=== PATIENT | female | born 1970 | race Two or more races ===

== ENCOUNTER 2018-03-18 12:00 | Inpatient (IN) | payer OTHER ==
[~2018-03-18] VITALS: Ht 157.5 cm; Wt 63.5 kg
[2018-03-18] MEDS ORDERED: LEVO-T75 MCG PO (15:50)
[2018-03-18] MEDS ORDERED: GABAPENTIN600 MG PO (15:51)
[2018-03-18] MEDS ORDERED: JENTADUETO XR1 EACH PO (15:51)
[2018-03-18] MEDS ORDERED: FENOFIBRATE160 MG PO (15:51)
[2018-03-18] MEDS ORDERED: DICLOFENAC POTA50 MG PO (15:52)
[2018-03-18] MEDS ORDERED: ZOLOFT50 MG PO (15:52)
[2018-03-26] MEDS ORDERED: DOCUSATE SODIU100 MG PO (09:14)
[2018-03-26] MEDS ORDERED: GABAPENTIN800 MG PO (09:14)
[2018-03-26] MEDS ORDERED: AMOX-CLAV 875-1 EACH PO (09:15)
[2018-03-26] MEDS ORDERED: CLONAZEPAM1 MG PO (09:16)
[2018-03-26] MEDS ORDERED: PERCOCET 5-3251 EACH PO (09:16)
[2018-03-26] MEDS ORDERED: MEDROLPACK PO (09:52)
== END 2018-03-26 14:08 | disposition home or self-care (01) | DRG 455 ==
LOC: SURG 03-25 07:44 → O/R 03-25 07:44 → SURG 03-25 11:06 → RECOVERY 03-25 12:00 → SURG 03-26 14:08
PROVIDERS: Orthopaedic Surgery Orthopaedic Surgery of the Spine
PROC: 0SG30AJ Fusion of Lumbosacral Joint with Interbody Fusion Device, Posterior Approach, Anterior Column, Open Approach (ICD-10-PCS; 2018-03-25)
PROC: 0SG3071 Fusion of Lumbosacral Joint with Autologous Tissue Substitute, Posterior Approach, Posterior Column, Open Approach (ICD-10-PCS; 2018-03-25)
PROC: 07DS3ZZ Extraction of Vertebral Bone Marrow, Percutaneous Approach (ICD-10-PCS; 2018-03-25)
PROC: 0ST40ZZ Resection of Lumbosacral Disc, Open Approach (ICD-10-PCS; principal; 2018-03-25 15:15)
DX: M47.27 Other spondylosis with radiculopathy, lumbosacral region (principal); M51.17 Intervertebral disc disorders with radiculopathy, lumbosacral region; E03.8 Other specified hypothyroidism; I10 Essential (primary) hypertension